=== PATIENT | male | born 1965 | race African-American/Black ===

== ENCOUNTER 2016-10-20 13:58 | Observation (INO) | payer SELFPAY ==
[~2016-10-20] VITALS: Ht 175.3 cm; Wt 80.0 kg
[~2016-10-20 13:58] MED LIST: IBUP800T23 PO
[2016-10-20 14:05] VITALS: BP 165/79; PULSE 73; RESP 16; TEMP 99; O2SAT 98
--- NOTE | 2016-10-20 14:14 | PD ---
HPI Chief Complaint: Chest Pain Time Seen by Provider: 14:04 Travel History International Travel<30 days: No Contact w/Intl Traveler<30days: No Traveled to known affect area: No History of Present Illness HPI The patient is a 50-year-old Shara male who presents emergency department for chest pain. The patient states he used crack cocaine last night and was drinking alcohol, walking, when he developed chest pain. The chest pain was substernal to left-sided, sharp to dull and achy, constant, worse with walking, not alleviated at rest. The patient does complain of mild shortness of breath and nausea without any vomiting, abdominal pain, or diaphoresis. The patient denies any known history of hypertension, hyperlipidemia, diabetes, or previous CAD. The patient does note he has had a previous stress test, however , cannot recall the last time he had a stress test. The patient states he was told that he has a valve that "opens and closes quickly ". The patient does admit to using tobacco. An does note a family history of heart disease on his father's side, however, was not early, before the age of 55. Symptoms are moderate, possibly exacerbated after using crack cocaine and alcohol, and there are no current alleviating factors. The patient received aspirin and sublingual nitroglycerin prior to arrival without any alleviation of his symptoms. [facility] Past Medical History Narrative Medical Illicit drug use, a valve that "opens and closes too quickly " Past Surgical History Narrative Surgical Noncontributory Cholecystectomy: Yes Social History Alcohol Use: Yes (one beer daily) Tobacco Use: Yes (one pack every other day) Substance Use: Yes (crack cocaine) Allergies-Medications (Allergen,Severity, Reaction): Coded Allergies: No Known Allergies (Unverified , 10/20/16) Reported Meds & Prescriptions Reported Meds & Active Scripts Active No Active Prescriptions or Reported Medications Review of Systems Except as stated in HPI: all other systems reviewed are Neg General / Constitutional: No: Fever Cardiovascular: Positive: Chest Pain or Discomfort, No: Diaphoresis Respiratory: Positive: Shortness of Breath Gastrointestinal: Positive: Nausea, No: Vomiting Musculoskeletal: No: Weakness, Edema Neurologic: No: Dizziness Psychiatric: Positive: Substance Abuse Physical Exam Narrative GENERAL: Awake, alert, very pleasant 50-year-old Shara male who appears his stated age and is in no acute respiratory distress. SKIN: Focused skin assessment warm/dry. HEAD: Atraumatic. Normocephalic. EYES: Pupils equal and round. Mild injection bilaterally. ENT: No nasal bleeding or discharge. Breath smells slightly of alcohol. NECK: Trachea midline. No JVD. CARDIOVASCULAR: Regular rate and rhythm. No murmur appreciated. Palpation of the left chest wall does not reproduce symptoms. RESPIRATORY: No accessory muscle use. Clear to auscultation. Breath sounds equal bilaterally. GASTROINTESTINAL: Abdomen soft, minimal epigastric tenderness. MUSCULOSKELETAL: No obvious deformities. No clubbing. No cyanosis. No edema. NEUROLOGICAL: Awake and alert. No obvious cranial nerve deficits. Motor grossly within normal limits. Normal speech. PSYCHIATRIC: Appropriate mood and affect; insight and judgment normal. Data Data Last Documented VS Vital Signs Date Time Temp Pulse Resp B/P Pulse Ox O2 Delivery O2 Flow Rate FiO2 10/20/16 14:48 75 14 129/71 98 10/20/16 14:05 99.0 10/20/16 14:05 Nasal Cannula 2 Orders Electrocardiogram (10/20/16 14:04) Ckmb (Isoenzyme) Profile (10/20/16 14:04) Complete Blood Count With Diff (10/20/16 14:04) Comprehensive Metabolic Panel (10/20/16 14:04) Magnesium (Mg) (10/20/16 14:04) Prothrombin Time / Inr (Pt) (10/20/16 14:04) Act Partial Throm Time (Ptt) (10/20/16 14:04) Troponin I (10/20/16 14:04) Lipase (10/20/16 14:04) Chest, Single Ap (10/20/16 14:04) Ecg Monitoring (10/20/16 14:04) Bilateral Bp Monitoring (10/20/16 14:04) Iv Access Insert/Monitor (10/20/16 14:04) Oximetry (10/20/16 14:04) Oxygen Administration (10/20/16 14:04) Morphine Inj (Morphine Inj) (10/20/16 14:15) Sodium Chloride 0.9% Flush (Ns Flush) (10/20/16 14:15) Sodium Chlorid 0.9% 500 Ml Inj (Ns 500 M (10/20/16 14:15) Alcohol (Ethanol) (10/20/16 14:04) Drug Screen, Random Urine (10/20/16 14:04) Ondansetron Inj (Zofran Inj) (10/20/16 14:15) CKMB (10/20/16 14:45) CKMB% (10/20/16 14:45) Labs Laboratory Tests Test 10/20/16 10/20/16 14:15 14:45 Urine Opiates Screen NEG Urine Barbiturates Screen NEG Urine Amphetamines Screen NEG Urine Benzodiazepines Screen NEG Urine Cocaine Screen POS Urine Cannabinoids Screen NEG White Blood Count 5.2 TH/MM3 Red Blood Count 3.95 MIL/MM3 Hemoglobin 12.3 GM/DL Hematocrit 36.5 % Mean Corpuscular Volume 92.5 FL Mean Corpuscular Hemoglobin 31.2 PG Mean Corpuscular Hemoglobin 33.7 % Concent Red Cell Distribution Width 12.8 % Platelet Count 231 TH/MM3 Mean Platelet Volume 8.0 FL Neutrophils (%) (Auto) 58.1 % Lymphocytes (%) (Auto) 31.0 % Monocytes (%) (Auto) 8.7 % Eosinophils (%) (Auto) 1.5 % Basophils (%) (Auto) 0.7 % Neutrophils # (Auto) 3.0 TH/MM3 Lymphocytes # (Auto) 1.6 TH/MM3 Monocytes # (Auto) 0.5 TH/MM3 Eosinophils # (Auto) 0.1 TH/MM3 Basophils # (Auto) 0.0 TH/MM3 CBC Comment DIFF FINAL Differential Comment Prothrombin Time 10.4 SEC Prothromb Time International 0.9 RATIO Ratio Activated Partial 27.3 SEC Thromboplast Time Sodium Level 141 MEQ/L Potassium Level 3.8 MEQ/L Chloride Level 107 MEQ/L Carbon Dioxide Level 27.0 MEQ/L Anion Gap 7 MEQ/L Blood Urea Nitrogen 15 MG/DL Creatinine 0.93 MG/DL Estimat Glomerular Filtration 103 ML/MIN Rate Random Glucose 74 MG/DL Calcium Level 8.6 MG/DL Magnesium Level 2.3 MG/DL Total Bilirubin 0.7 MG/DL Aspartate Amino Transf 37 U/L (AST/SGOT) Alanine Aminotransferase 41 U/L (ALT/SGPT) Alkaline Phosphatase 68 U/L Total Creatine Kinase 717 U/L Creatine Kinase MB 2.9 NG/ML Creatine Kinase MB % 0.4 % Troponin I LESS THAN 0.02 NG/ML Total Protein 7.1 GM/DL Albumin 3.8 GM/DL Lipase 94 U/L Ethyl Alcohol Level LESS THAN 3 MG/DL MDM Medical Decision Making Medical Screen Exam Complete: Yes Emergency Medical Condition: Yes Medical Record Reviewed: Yes Interpretation(s) EKG reveals normal sinus rhythm with a rate of 67. Nonspecific T-wave changes. Left ventricular hypertrophy. Last Impressions Chest X-Ray 10/20/16 1404 Signed Impressions: Service Date/Time: September 14:12 - CONCLUSION: 1. No acute focal pulmonary infiltrate. 2. Degenerative changes throughout the thoracic spine. Navneet Martin MD Laboratory Tests Test 10/20/16 10/20/16 14:15 14:45 Urine Opiates Screen NEG Urine Barbiturates Screen NEG Urine Amphetamines Screen NEG Urine Benzodiazepines Screen NEG Urine Cocaine Screen POS Urine Cannabinoids Screen NEG White Blood Count 5.2 TH/MM3 Red Blood Count 3.95 MIL/MM3 Hemoglobin 12.3 GM/DL Hematocrit 36.5 % Mean Corpuscular Volume 92.5 FL Mean Corpuscular Hemoglobin 31.2 PG Mean Corpuscular Hemoglobin 33.7 % Concent Red Cell Distribution Width 12.8 % Platelet Count 231 TH/MM3 Mean Platelet Volume 8.0 FL Neutrophils (%) (Auto) 58.1 % Lymphocytes (%) (Auto) 31.0 % Monocytes (%) (Auto) 8.7 % Eosinophils (%) (Auto) 1.5 % Basophils (%) (Auto) 0.7 % Neutrophils # (Auto) 3.0 TH/MM3 Lymphocytes # (Auto) 1.6 TH/MM3 Monocytes # (Auto) 0.5 TH/MM3 Eosinophils # (Auto) 0.1 TH/MM3 Basophils # (Auto) 0.0 TH/MM3 CBC Comment DIFF FINAL Differential Comment Prothrombin Time 10.4 SEC Prothromb Time International 0.9 RATIO Ratio Activated Partial 27.3 SEC Thromboplast Time Sodium Level 141 MEQ/L Potassium Level 3.8 MEQ/L Chloride Level 107 MEQ/L Carbon Dioxide Level 27.0 MEQ/L Anion Gap 7 MEQ/L Blood Urea Nitrogen 15 MG/DL Creatinine 0.93 MG/DL Estimat Glomerular Filtration 103 ML/MIN Rate Random Glucose 74 MG/DL Calcium Level 8.6 MG/DL Magnesium Level 2.3 MG/DL Total Bilirubin 0.7 MG/DL Aspartate Amino Transf 37 U/L (AST/SGOT) Alanine Aminotransferase 41 U/L (ALT/SGPT) Alkaline Phosphatase 68 U/L Total Creatine Kinase 717 U/L Creatine Kinase MB 2.9 NG/ML Creatine Kinase MB % 0.4 % Troponin I LESS THAN 0.02 NG/ML Total Protein 7.1 GM/DL Albumin 3.8 GM/DL Lipase 94 U/L Ethyl Alcohol Level LESS THAN 3 MG/DL Differential Diagnosis Differential diagnosis includes acute coronary syndrome, cocaine toxicity, rhabdomyolysis, pancreatitis, GERD, esophageal spasm, peptic ulcer disease. Narrative Course IV was established, labs are drawn and sent, and the patient was placed on cardiac telemetry monitoring and continuous pulse oximetry monitoring. EKG was ordered and interpreted. The patient received aspirin and nitroglycerin prior to arrival. The patient received morphine, Zofran, and IV fluids. Chest x-ray was obtained. Chest x-rays unremarkable. Tox screen is positive for cocaine. Alcohol is unremarkable. The CPK is mildly elevated at 700, troponin is negative. Patient may have cocaine-induced ischemic cardiomyopathy versus rhabdomyolysis from cocaine. Therefore, patient will be 23 hour observation. Physician Communication Physician Communication The patient will be 23 hour observation to the chest pain center for serial cardiac enzymes and further evaluation by cardiology. Diagnosis Primary Impression: Chest pain Qualified Code: R07.9 - Chest pain, unspecified type Admitting Information Admitting Physician Requests: Observation Scripts No Active Prescriptions or Reported Meds Condition: Stable Wojciech Luke MD Oct 20, 2016 14:14
[2016-10-20] MEDS ORDERED: MORPHINE SULFATE 4 MG/ML INJ IV PUSH ONE (14:15)
[2016-10-20] MEDS ORDERED: ONDANSETRON HCL 4 MG/2 ML VIAL IV PUSH ONE (14:15)
[2016-10-20] MEDS ORDERED: SODIUM CHLORIDE 0.9% FLUSH 10 ML FLUSH IVF PRN (14:15)
[2016-10-20] MEDS ORDERED: SODIUM CHLORID 0.9% 500 ML INJ 500 ML IV ONE (14:15)
--- NOTE | 2016-10-20 14:22 | EKG ---
Date Performed: 10/20/2016 Time Performed: 14:06:07 PTAGE: 50 years EKG: Sinus rhythm LEFT ATRIAL ENLARGEMENT POSSIBLE LEFT VENTRICULAR HYPERTROPHY Mild nonspecific anteroseptal ST eleva tion. NONSPECIFIC T-WAVE ABNORMALITY Clinical correlation suggested. ABNORMAL ECG NO PREVIOUS TRACING DOCTOR: Vinod Lizarraga Interpretating Date/Time 10/20/2016 14:20:13
[2016-10-20 14:48] VITALS: BP 129/71; PULSE 75; RESP 14; O2SAT 98
[2016-10-20 15:22] LABS: BASOPHIL % 0.7 % (0.0-2.0); EOSINOPHIL # 0.1 TH/MM3 (0-0.4); EOSINOPHIL % 1.5 % (0.0-4.0); HEMATOCRIT 36.5 % (39.0-51.0); HEMO FLAGS DIFF FINAL; LYMPHOCYTE # 1.6 TH/MM3 (1.0-4.8); MEAN CELL VOLUME 92.5 FL (80.0-100.0); MEAN CORPUSCULAR HEMOGLOBIN 31.2 PG (27.0-34.0); MEAN CORPUSCULAR HGB CONC 33.7 % (32.0-36.0); MONO % 8.7 % (0.0-8.0); NEUT % 58.1 % (16.0-70.0); PLATELET COUNT 231 TH/MM3 (150-450); RED BLOOD COUNT 3.95 MIL/MM3 (4.50-5.90); RED CELL DISTRIBUTION WIDTH 12.8 % (11.6-17.2); WHITE BLOOD COUNT 5.2 TH/MM3 (4.0-11.0)
[2016-10-20 15:23] LABS: AMPHETAMINE, URINE NEG (NEG); BARBITURATES, URINE NEG (NEG); COCAINE, URINE POS (NEG)
[2016-10-20 15:27] LABS: APTT (PATIENT) 27.3 SEC (24.3-30.1); INTERNATIONAL NORMALIZED RATIO 0.9 RATIO; PROTHROMBIN TIME - PATIENT 10.4 SEC (9.8-11.6)
[2016-10-20 15:40] LABS: ALT (GPT) 41 U/L (12-78); ANION GAP 7 MEQ/L (5-15); AST (GOT) 37 U/L (15-37); BLOOD UREA NITROGEN 15 MG/DL (7-18); CHLORIDE 107 MEQ/L (98-107); GLOMERULAR FILTRATION RATE 103 ML/MIN (>89); MAGNESIUM 2.3 MG/DL (1.5-2.5); POTASSIUM 3.8 MEQ/L (3.5-5.1); SODIUM (NA) 141 MEQ/L (136-145)
[2016-10-20 15:42] LABS: ALKALINE PHOSPHATASE 68 U/L (45-117); CREATINE KINASE 717 U/L (39-308); TOTAL BILIRUBIN ADULT 0.7 MG/DL (0.2-1.0)
--- NOTE | 2016-10-20 15:48 | RADRPT ---
EXAM DATE/TIME: 10/20/2016 14:12 [facility] COMPARISON: CHEST SINGLE AP, March 02, 2015, 19:42. INDICATIONS : Chest pain today. MEDICAL HISTORY : None. SURGICAL HISTORY : None. ENCOUNTER: Initial ACUITY: 1 day PAIN SCORE: 6/10 LOCATION: Bilateral chest FINDINGS: The heart is top normal in size. The pulmonary vascular pattern is normal. The lungs are clear. De generative changes are noted throughout the thoracic spine. CONCLUSION: 1. No acute focal pulmonary infiltrate. 2. Degenerative changes throughout the thoracic spine. Navneet Martin MD on October 20, 2016 at 15:06 Board Certified Radiologist. This report was verified electronically.
[2016-10-20 16:14] LABS: CKMB 2.9 NG/ML (0.5-3.6)
[2016-10-20] MEDS ORDERED: ACETAMINOPHEN 500 MG CPLT PO PRN (17:00)
[2016-10-20] MEDS ORDERED: ONDANSETRON HCL 4 MG/2 ML VIAL IV PRN (17:00)
[2016-10-20] MEDS ORDERED: NITROGLYCERIN 0.4 MG SL 25 TABS/BTL SL PRN (17:00)
[2016-10-20 17:46] VITALS: BP 177/92; PULSE 73; RESP 16; TEMP 97.6; O2SAT 98
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
[2016-10-20] MEDS ORDERED: amLODIPine BESYLATE 5 MG TAB PO ONE (18:30)
[2016-10-20 18:56] LABS: CREATINE KINASE 727 U/L (39-308)
[2016-10-20 19:17] LABS: CKMB 2.6 NG/ML (0.5-3.6)
[2016-10-20 19:36] VITALS: BP 168/87; PULSE 76; RESP 18; TEMP 98.9; O2SAT 100
[2016-10-20 20:01] VITALS: PULSE 78
[2016-10-20] MEDS: SODIUM CHLORIDE 0.9% FLUSH 10 ML FLUSH IV FLUSH SCH (20:59)
[2016-10-20 22:42] LABS: CREATINE KINASE 480 U/L (39-308)
[2016-10-20 22:54] LABS: CKMB 1.8 NG/ML (0.5-3.6)
[2016-10-20 23:42] VITALS: BP 137/79; PULSE 76; RESP 18; TEMP 98; O2SAT 99
[2016-10-21] VITALS (7 sets, daily range): BP systolic 136–175; BP diastolic 77–91; PULSE 54–66; RESP 18; TEMP 98.2–98.3; O2SAT 94–99
[2016-10-21] MEDS ORDERED: amLODIPine BESYLATE 5 MG TAB PO SCH (09:00)
[2016-10-21] MEDS ORDERED: ASPIRIN 325 MG TAB PO SCH (09:00)
[2016-10-21] MEDS: SODIUM CHLORIDE 0.9% FLUSH 10 ML FLUSH IV FLUSH SCH (09:07)
--- NOTE | 2016-10-21 09:33 | EKG ---
Date Performed: 10/20/2016 Time Performed: 18:12:37 PTAGE: 50 years EKG: Sinus rhythm POSSIBLE LEFT ATRIAL ENLARGEMENT POSSIBLE LEFT VENTRICULAR HYPERTROPHY NONSPECIFIC T-WAVE ABNORMALIT Y ABNORMAL ECG PREVIOUS TRACING : 10/20/2016 14.06 Since previous tracing, no significant change noted DOCTOR: Jake Alicea Interpretating Date/Time 10/21/2016 09:31:14
[2016-10-21] MEDS ORDERED: REGADENOSON INJ 0.4 MG/5 ML SYR ONE (11:44)
--- NOTE | 2016-10-21 13:12 | RADRPT ---
EXAM DATE/TIME: 10/21/2016 11:23 [facility] COMPARISON: No previous studies available for comparison. INDICATIONS : Angina. DOSE: 26.1 mCi Tc99m Myoview at stress. 8.1 mCi Tc99m Myoview at rest. 0.4 mg Lexiscan STRESS SYMPTOMS: None noted. EJECTION FRACTION: 50% MEDICAL HISTORY : None SURGICAL HISTORY : Cholecystectomy. ENCOUNTER: Initial ACUITY: 1 day PAIN SCALE: 3/10 LOCATION: Left chest pain TECHNIQUE: The patient underwent pharmacologic stress with infusion of prescribed dose. Continuous ECG tracing was monitored during stress. Gated SPECT imaging was performed after stress and conventional SPECT i maging was performed at rest. The examination was performed on a SPECT/CT scanner, both attenuation and non-corrected datasets were reviewed. FINDINGS: The best perfused myocardium at stress is the septum. There is minimal redistribution anterior later al wall with some gut activity obscuring the inferior wall. This is of borderline significance. The ejection fraction is 50% with minimal inferior lateral wall hypokinesis. CONCLUSION: Borderline redistribution partially obscured by gut activity with mildly depressed ejection fraction. Correlation is suggested. RISK CATEGORY: Low (<1% Annual Mortality Rate) Booker Krause MD FACR on October 21, 2016 at 13:08 Board Certified Radiologist. This report was verified electronically.
--- NOTE | 2016-10-21 13:33 | HHI.DCPOC ---
Discharge Care Plan Diagnosis: (1) Chest pain (2) Tobacco abuse (3) Cocaine abuse Goals to Promote Your Health * To prevent worsening of your condition and complications * To maintain your health at the optimal level Directions to Meet Your Goals Take your medications as prescribed Follow your dietary instruction Follow activity as directed Keep your appointments as scheduled Take your immunizations and boosters as scheduled If your symptoms worsen call your PCP, if no PCP go to Urgent Care Center or Emergency Room Smoking is Dangerous to Your Health. Avoid second hand smoke Call the 24-hour hour crisis hotline for domestic abuse at Yeyo Mccray Oct 21, 2016 13:33
--- NOTE | 2016-10-21 15:26 | TR ---
Date Performed: 10/21/2016 Time Performed: 11:59:55 DOCTOR: Jake Alicea DRUG LIST: CLINICAL HISTORY: ANGINA REASON FOR TEST: Angina REASON FOR ENDING: OBSERVATION: CONCLUSION: Lexiscan stress test was performed under standard four minute protocol. Radionuclid e was injected one minute prior to ending the test. No electrocardiographic abormalities were present to suggest ischemia. Nuclear imaging and interpretation are pending. COMMENTS:
--- NOTE | 2016-10-21 15:31 | TR ---
Date Performed: 10/21/2016 Time Performed: 08:43:56 DOCTOR: Jake Alicea DRUG LIST: CLINICAL HISTORY: REASON FOR TEST: REASON FOR ENDING: OBSERVATION: CONCLUSION: CHEST TIGHTNESS IN SECOND STAGE. TEST STOPPED PRIOR TO REACHING GOAL HR SECONDARY TO CP, SOB, AND LEG FATIGUE. Maximum EL=840 % Max HR Achieved=64.0% Maximum DX=384/80 Total Exercise Ti me=4:13 COMMENTS: Non diagnostic test due to inability to achieve target HR
[2016-10-22] MEDS ORDERED: NAPR500T PO (02:00)
== END 2016-10-21 15:32 | disposition home or self-care (01) ==
LOC: NEPE 13:58 → NEDA 16:25 → NEPHCDU 17:45
PROVIDERS: ADMIT Internal Medicine Cardiovascular Disease; ATTEND Internal Medicine Cardiovascular Disease
DX: R07.89 Other chest pain (principal); R11.0 Nausea; R61 Generalized hyperhidrosis; R51 Headache; R91.8 Other nonspecific abnormal finding of lung field; I20.9 Angina pectoris, unspecified; R06.02 Shortness of breath; R10.816 Epigastric abdominal tenderness; R94.31 Abnormal electrocardiogram [ECG] [EKG]; I11.9 Hypertensive heart disease without heart failure; I51.7 Cardiomegaly; F14.10 Cocaine abuse, uncomplicated; F17.200 Nicotine dependence, unspecified, uncomplicated
CPT/HCPCS: 71010; 78452; 80053; 80307; 82550; 82552; 83690; 83735; 84484; 85025; 85610; 85730; 93005; 93017; 96374; 96375; 99285; A9502; G0378; J2270; J2405; J2785; J7040

== ENCOUNTER 2016-10-21 22:50 | Emergency (ER) | payer SELFPAY ==
[~2016-10-21] VITALS: Ht 177.8 cm; Wt 89.0 kg
[2016-10-21 22:52] VITALS: BP 141/79; PULSE 62; TEMP 98.4; O2SAT 98
[2016-10-21 23:47] VITALS: BP 163/90; PULSE 60; RESP 18; O2SAT 99
[2016-10-22] MEDS ORDERED: SODIUM CHLORIDE 0.9% FLUSH 10 ML FLUSH IVF PRN
[2016-10-22] MEDS ORDERED: KETOROLAC TROMETHAMINE 30 MG/ML (IVP) VIAL IV PUSH ONE
--- NOTE | 2016-10-22 00:15 | PD ---
HPI Chief Complaint: Chest Pain Time Seen by Provider: 23:49 Travel History International Travel<30 days: No Contact w/Intl Traveler<30days: No Traveled to known affect area: No History of Present Illness HPI Patient is a 50-year-old male who returns to emergency room for evaluation of chest pain. Patient reports that he was just discharged from the chest pain unit today after he had a negative stress test, he reports that he is still having chest pain. Patient reports that he has had substernal chest pain all day, reports that he had this pain when he was discharged from the chest pain unit. Patient denies use of drugs at this time at he did use cocaine prior to his chest pain admission. Patient reports no medical problems at this time, no family history of early coronary artery disease. PFSH Past Medical History Depression: Yes Cardiovascular Problems: No Diminished Hearing: No Tetanus Vaccination: Unknown Influenza Vaccination: No Past Surgical History Cholecystectomy: Yes Social History Alcohol Use: Yes (OCCASSIONALLY) Tobacco Use: Yes (04/25) Substance Use: Yes (COCAINE 10/19/16) Allergies-Medications (Allergen,Severity, Reaction): Coded Allergies: No Known Allergies (Unverified , 10/21/16) Reported Meds & Prescriptions Reported Meds & Active Scripts Active No Active Prescriptions or Reported Medications Review of Systems General / Constitutional: No: Fever Eyes: No: Visual changes HENT: No: Headaches Cardiovascular: Positive: Chest Pain or Discomfort Respiratory: No: Shortness of Breath Gastrointestinal: No: Abdominal Pain Genitourinary: No: Dysuria Musculoskeletal: No: Pain Skin: No Rash Neurologic: No: Weakness Psychiatric: No: Depression Endocrine: No: Polydipsia Hematologic/Lymphatic: No: Easy Bruising Physical Exam Narrative GENERAL: No acute distress, nontoxic SKIN: Focused skin assessment warm/dry. HEAD: Atraumatic. Normocephalic. EYES: Pupils equal and round. No scleral icterus. No injection or drainage. ENT: No nasal bleeding or discharge. Mucous membranes pink and moist. NECK: Trachea midline. No JVD. CARDIOVASCULAR: Regular rate and rhythm. No murmur appreciated. RESPIRATORY: No accessory muscle use. Clear to auscultation. Breath sounds equal bilaterally. GASTROINTESTINAL: Abdomen soft, non-tender, nondistended. Hepatic and splenic margins not palpable. MUSCULOSKELETAL: No obvious deformities. No clubbing. No cyanosis. No edema. NEUROLOGICAL: Awake and alert. No obvious cranial nerve deficits. Motor grossly within normal limits. Normal speech. PSYCHIATRIC: Appropriate mood and affect; insight and judgment normal. Data Data Last Documented VS Vital Signs Date Time Temp Pulse Resp B/P Pulse Ox O2 Delivery O2 Flow Rate FiO2 10/22/16 01:26 55 18 154/70 98 Room Air 10/21/16 22:52 98.4 Orders Electrocardiogram (10/21/16 ) Ckmb (Isoenzyme) Profile (10/21/16 23:49) Complete Blood Count With Diff (10/21/16 23:49) Comprehensive Metabolic Panel (10/21/16 23:49) Prothrombin Time / Inr (Pt) (10/21/16 23:49) Act Partial Throm Time (Ptt) (10/21/16 23:49) Troponin I (10/21/16 23:49) Chest, Single Ap (10/21/16 23:49) Ecg Monitoring (10/21/16 23:49) Iv Access Insert/Monitor (10/21/16 23:49) Oximetry (10/21/16 23:49) Sodium Chloride 0.9% Flush (Ns Flush) (10/22/16 00:00) Drug Screen, Random Urine (10/21/16 23:49) Ketorolac Inj (Toradol Inj) (10/22/16 00:00) CKMB (10/22/16 00:10) CKMB% (10/22/16 00:10) Labs Laboratory Tests Test 10/22/16 00:10 White Blood Count 6.7 TH/MM3 Red Blood Count 4.33 MIL/MM3 Hemoglobin 13.2 GM/DL Hematocrit 40.8 % Mean Corpuscular Volume 94.1 FL Mean Corpuscular Hemoglobin 30.5 PG Mean Corpuscular Hemoglobin 32.4 % Concent Red Cell Distribution Width 13.0 % Platelet Count 233 TH/MM3 Mean Platelet Volume 8.3 FL Neutrophils (%) (Auto) 57.3 % Lymphocytes (%) (Auto) 33.6 % Monocytes (%) (Auto) 7.2 % Eosinophils (%) (Auto) 1.2 % Basophils (%) (Auto) 0.7 % Neutrophils # (Auto) 3.8 TH/MM3 Lymphocytes # (Auto) 2.3 TH/MM3 Monocytes # (Auto) 0.5 TH/MM3 Eosinophils # (Auto) 0.1 TH/MM3 Basophils # (Auto) 0.0 TH/MM3 CBC Comment DIFF FINAL Differential Comment Prothrombin Time 10.6 SEC Prothromb Time International 1.0 RATIO Ratio Activated Partial 27.5 SEC Thromboplast Time Sodium Level 142 MEQ/L Potassium Level 3.7 MEQ/L Chloride Level 107 MEQ/L Carbon Dioxide Level 30.2 MEQ/L Anion Gap 5 MEQ/L Blood Urea Nitrogen 13 MG/DL Creatinine 1.22 MG/DL Estimat Glomerular Filtration 76 ML/MIN Rate Random Glucose 86 MG/DL Calcium Level 8.9 MG/DL Total Bilirubin 0.9 MG/DL Aspartate Amino Transf 30 U/L (AST/SGOT) Alanine Aminotransferase 39 U/L (ALT/SGPT) Alkaline Phosphatase 68 U/L Total Creatine Kinase 363 U/L Creatine Kinase MB 1.5 NG/ML Creatine Kinase MB % 0.4 % Troponin I LESS THAN 0.02 NG/ML Total Protein 7.5 GM/DL Albumin 4.0 GM/DL Urine Opiates Screen NEG Urine Barbiturates Screen NEG Urine Amphetamines Screen NEG Urine Benzodiazepines Screen NEG Urine Cocaine Screen POS Urine Cannabinoids Screen NEG MDM Medical Decision Making Medical Screen Exam Complete: Yes Emergency Medical Condition: Yes Interpretation(s) EKG at 2306: Sinus baldev at 54bpm, qt/qtc: 405/391, no change when compared to ekg from 10/10/16 Vital Signs Date Time Temp Pulse Resp B/P Pulse Ox O2 Delivery O2 Flow Rate FiO2 10/22/16 00:28 18 100 Room Air 10/21/16 23:47 60 18 163/90 99 Room Air 10/21/16 23:42 60 18 99 Room Air 10/21/16 22:52 98.4 62 141/79 98 Differential Diagnosis ACS, arrhythmia, electrolyte abnormality, drug abuse, costochondritis Narrative Course Patient is a 50-year-old male who was discharged from the chest pain unit today , return to the emergency with complaints of chest pain. Patient reports that his chest pain never resolved and he was discharged with chest pain. Patient reports that his chest pain feels similar to his previous episodes, reports no new symptoms at this time. Patient denies any shortness of breath, diaphoresis , nausea or vomiting with the symptoms. Patient denies any cocaine abuse with this chest pain today. During patient's evaluation at the chest pain unit, patient did have a stress test performed. There were no electrocardiographic abnormalities presents to suggest ischemia. Patient was discharged from the hospital with instructions to follow-up with his physician as outpatient. Patient returned today with similar symptoms, reports that his chest pain never resolved. Patient was placed on a front desk monitor upon arrival to the emergency room. EKG obtained, EKG similar to EKG pain from 10/20/2016. Plan to obtain labs, xray of chest, will monitor on front desk monitor. Will administer IV toradol for pain Laboratory Tests Test 10/22/16 00:10 White Blood Count 6.7 TH/MM3 (4.0-11.0) Red Blood Count 4.33 MIL/MM3 (4.50-5.90) Hemoglobin 13.2 GM/DL (13.0-17.0) Hematocrit 40.8 % (39.0-51.0) Mean Corpuscular Volume 94.1 FL (80.0-100.0) Mean Corpuscular Hemoglobin 30.5 PG (27.0-34.0) Mean Corpuscular Hemoglobin 32.4 % Concent (32.0-36.0) Red Cell Distribution Width 13.0 % (11.6-17.2) Platelet Count 233 TH/MM3 (150-450) Mean Platelet Volume 8.3 FL (7.0-11.0) Neutrophils (%) (Auto) 57.3 % (16.0-70.0) Lymphocytes (%) (Auto) 33.6 % (9.0-44.0) Monocytes (%) (Auto) 7.2 % (0.0-8.0) Eosinophils (%) (Auto) 1.2 % (0.0-4.0) Basophils (%) (Auto) 0.7 % (0.0-2.0) Neutrophils # (Auto) 3.8 TH/MM3 (1.8-7.7) Lymphocytes # (Auto) 2.3 TH/MM3 (1.0-4.8) Monocytes # (Auto) 0.5 TH/MM3 (0-0.9) Eosinophils # (Auto) 0.1 TH/MM3 (0-0.4) Basophils # (Auto) 0.0 TH/MM3 (0-0.2) CBC Comment DIFF FINAL Differential Comment Prothrombin Time 10.6 SEC (9.8-11.6) Prothromb Time International 1.0 RATIO Ratio Activated Partial 27.5 SEC Thromboplast Time (24.3-30.1) Sodium Level 142 MEQ/L (136-145) Potassium Level 3.7 MEQ/L (3.5-5.1) Chloride Level 107 MEQ/L (98-107) Carbon Dioxide Level 30.2 MEQ/L (21.0-32.0) Anion Gap 5 MEQ/L (5-15) Blood Urea Nitrogen 13 MG/DL (7-18) Creatinine 1.22 MG/DL (0.60-1.30) Estimat Glomerular Filtration 76 ML/MIN (>89) Rate Random Glucose 86 MG/DL (74-106) Calcium Level 8.9 MG/DL (8.5-10.1) Total Bilirubin 0.9 MG/DL (0.2-1.0) Aspartate Amino Transf 30 U/L (15-37) (AST/SGOT) Alanine Aminotransferase 39 U/L (12-78) (ALT/SGPT) Alkaline Phosphatase 68 U/L (45-117) Total Creatine Kinase 363 U/L (39-308) Creatine Kinase MB 1.5 NG/ML (0.5-3.6) Creatine Kinase MB % 0.4 % (0.0-4.0) Troponin I LESS THAN 0.02 NG/ML (0.02-0.05) Total Protein 7.5 GM/DL (6.4-8.2) Albumin 4.0 GM/DL (3.4-5.0) Urine Opiates Screen NEG (NEG) Urine Barbiturates Screen NEG (NEG) Urine Amphetamines Screen NEG (NEG) Urine Benzodiazepines Screen NEG (NEG) Urine Cocaine Screen POS (NEG) Urine Cannabinoids Screen NEG (NEG) Last Impressions Chest X-Ray 10/21/16 0538 Signed Impressions: Service Date/Time: Friday, October 21, 2016 23:48 - CONCLUSION: Normal examination. Rich Tobias MD Patient feeling much better at this time after Toradol was given. Patient will follow-up with cardiology as outpatient. Patient most likely with costochondritis, encouraged him to stop using cocaine, patient agrees. Patient will follow-up with cardiology and his primary care doctor and will return to the emergency room as needed. Diagnosis Primary Impression: Chest pain Qualified Code: R07.9 - Chest pain, unspecified type Additional Impression: Drug abuse Referrals: Selvin Kam MD Patient Instructions: General Instructions Additional Instructions: Please stop using drugs Please follow-up with shipping hand, please call for earliest appointment Please follow-up with your primary care doctor Drink plenty of fluids Return to emergency room if symptoms worsen or progress Return to emergency room as needed Med/Other Pt SpecificInfo: Prescription(s) given Scripts Naproxen 500 Mg [id number] Mg PO BID #60 TAB Ref 0 Prov:Kandi Lizarraga DO 10/22/16 Disposition: 01 DISCHARGE HOME Condition: Stable Kandi Lizarraga DO Oct 22, 2016 00:15
[2016-10-22 00:28] VITALS: RESP 18; O2SAT 100
--- NOTE | 2016-10-22 00:29 | RADRPT ---
EXAM DATE/TIME: 10/21/2016 23:48 [facility] COMPARISON: CHEST SINGLE AP, October 20, 2016, 14:12. INDICATIONS : Patient having chest pain x 2 days. Seen here earlier today for same reason. MEDICAL HISTORY : None. SURGICAL HISTORY : Cholecystectomy. ENCOUNTER: Initial ACUITY: 2 days PAIN SCORE: 7/10 LOCATION: Bilateral chest FINDINGS: A single view of the chest demonstrates the lungs to be symmetrically aerated without evidence of mas s, infiltrate or effusion. The cardiomediastinal contours are unremarkable. Osseous structures are intact. CONCLUSION: Normal examination. Rich Tobias MD on October 22, 2016 at 0:27 Board Certified Radiologist. This report was verified electronically.
[2016-10-22 00:39] LABS: AUTOMATED NEUTROPHIL # 3.8 TH/MM3 (1.8-7.7); BASOPHIL % 0.7 % (0.0-2.0); EOSINOPHIL # 0.1 TH/MM3 (0-0.4); EOSINOPHIL % 1.2 % (0.0-4.0); HEMATOCRIT 40.8 % (39.0-51.0); HEMO FLAGS DIFF FINAL; LYMPH % 33.6 % (9.0-44.0); LYMPHOCYTE # 2.3 TH/MM3 (1.0-4.8); MEAN CELL VOLUME 94.1 FL (80.0-100.0); MEAN CORPUSCULAR HEMOGLOBIN 30.5 PG (27.0-34.0); MEAN CORPUSCULAR HGB CONC 32.4 % (32.0-36.0); MONO % 7.2 % (0.0-8.0); NEUT % 57.3 % (16.0-70.0); PLATELET COUNT 233 TH/MM3 (150-450); RED BLOOD COUNT 4.33 MIL/MM3 (4.50-5.90); WHITE BLOOD COUNT 6.7 TH/MM3 (4.0-11.0)
[2016-10-22 00:48] LABS: AMPHETAMINE, URINE NEG (NEG); BARBITURATES, URINE NEG (NEG); COCAINE, URINE POS (NEG)
[2016-10-22 00:55] LABS: APTT (PATIENT) 27.5 SEC (24.3-30.1); PROTHROMBIN TIME - PATIENT 10.6 SEC (9.8-11.6)
[2016-10-22 00:58] LABS: ALT (GPT) 39 U/L (12-78); ANION GAP 5 MEQ/L (5-15); AST (GOT) 30 U/L (15-37); BICARBONATE 30.2 MEQ/L (21.0-32.0); BLOOD UREA NITROGEN 13 MG/DL (7-18); CHLORIDE 107 MEQ/L (98-107); GLOMERULAR FILTRATION RATE 76 ML/MIN (>89); POTASSIUM 3.7 MEQ/L (3.5-5.1); SODIUM (NA) 142 MEQ/L (136-145)
[2016-10-22 01:01] LABS: ALKALINE PHOSPHATASE 68 U/L (45-117); CREATINE KINASE 363 U/L (39-308); TOTAL BILIRUBIN ADULT 0.9 MG/DL (0.2-1.0)
[2016-10-22 01:14] LABS: CKMB 1.5 NG/ML (0.5-3.6)
[2016-10-22 01:26] VITALS: BP 154/70; PULSE 55; RESP 18; O2SAT 98
[2016-10-22] MEDS ORDERED: NAPR500T PO (02:00)
--- NOTE | 2016-10-22 10:06 | EKG ---
Date Performed: 10/21/2016 Time Performed: 23:06:06 PTAGE: 50 years EKG: SINUS BRADYCARDIA POSSIBLE RIGHT ATRIAL ENLARGEMENT LEFT ATRIAL ENLARGEMENT POSSIBLE LEFT V ENTRICULAR HYPERTROPHY NONSPECIFIC T-WAVE ABNORMALITY ABNORMAL ECG No significant change from prior e lectrocardiogram. PREVIOUS TRACING : 10/20/2016 18.12 DOCTOR: Vinod Lizarraga Interpretating Date/Time 10/22/2016 10:04:19
== END 2016-10-22 02:20 | disposition home or self-care (01) ==
LOC: NEPE 22:50
DX: R07.89 Other chest pain (principal); F14.10 Cocaine abuse, uncomplicated; F32.9 Major depressive disorder, single episode, unspecified; F17.200 Nicotine dependence, unspecified, uncomplicated
CPT/HCPCS: 71010; 80053; 80307; 82550; 82552; 84484; 85025; 85610; 85730; 93005; 96374; 99285; J1885

== ENCOUNTER 2017-05-28 02:17 | Inpatient (IN) | payer SELFPAY ==
[~2017-05-28] VITALS: Ht 177.8 cm; Wt 86.1 kg
[2017-05-28] VITALS (9 sets, daily range): BP systolic 121–148; BP diastolic 70–96; PULSE 64–83; RESP 16–20; TEMP 98–98.9; O2SAT 94–99
[~2017-05-28 02:17] MED LIST changes: -IBUP800T23 PO; +NAPR500T2 PO
--- NOTE | 2017-05-28 02:44 | PD ---
HPI Chief Complaint: Syncope/Near-Syncope Time Seen by Provider: 02:38 Travel History International Travel<30 days: No Contact w/Intl Traveler<30days: No Traveled to known affect area: No History of Present Illness HPI 51-year-old male presents to the emergency department by EMS transport after syncopal episode while walking along [address]. Patient reports that just prior to arrival to the emergency department [facility] and did not have any kind of dizziness lightheadedness chest pain shortness of breath or new onset numbness tingling or weakness and found himself on the ground. Patient states he awakened on the ground and is not sure how long he had loss of consciousness but thinks maybe 10 or 15 minutes. Patient denies any bladder or bowel dysfunction or incontinence and denies any tongue trauma. Patient denies any prior history of seizure disorder. Patient admits to alcohol consumption this evening and cocaine use. Patient states he has had 3 prior episodes of syncope once in [place] and 2 times here in [place]. Patient states the 2 episodes in [place] were associated with cocaine use. Patient denies any recent long distance travel or protracted bedrest or surgical procedure. Patient denies any history of lower extremity pain or swelling or history of clotting disorder. Patient denies any cardiac history. Patient does admit to hypertension and substance use. Patient also admits to tobacco use. Patient denies any head pain neck pain upper or lower back pain chest pain rib pain chest wall pain abdominal pain or shortness of breath. Patient denies nausea or vomiting. Patient denies diaphoresis. Patient states that periodically he has some tingling in his right upper extremity and over the past 6-8 months he has noted some numbness in his left upper extremity but states these are not new symptoms. Patient denies any recent febrile illness. [facility] Past Medical History Narrative Medical Depression, valvular heart disease, hypertension; alcohol use tobacco use substance use/cocaine; nursing notes reviewed Depression: Yes Cardiovascular Problems: No Diminished Hearing: No Tetanus Vaccination: Unknown Influenza Vaccination: No Past Surgical History Cholecystectomy: Yes Social History Alcohol Use: Yes (4 beers a day) Tobacco Use: Yes (pack) Substance Use: Yes (COCAINE 10/19/16) Allergies-Medications (Allergen,Severity, Reaction): Coded Allergies: No Known Allergies (Unverified Allergy, Unknown, 05/28/17) Reported Meds & Prescriptions Reported Meds & Active Scripts Active Review of Systems Except as stated in HPI: all other systems reviewed are Neg General / Constitutional: No: Fever, Chills Eyes: No: Diploplia, Blurred Vision, Photophobia HENT: No: Headaches, Lightheadedness, Neck Stiffness, Neck Pain Cardiovascular: Positive: Syncope, No: Chest Pain or Discomfort, Palpitations, Diaphoresis Respiratory: No: Cough, Shortness of Breath, Wheezing Gastrointestinal: No: Nausea, Vomiting, Abdominal Pain Genitourinary: No: Decreased Urinary Output, Flank Pain Musculoskeletal: No: Myalgias, Arthralgias, Pain Skin: No Rash Neurologic: Positive: Syncope, No: Weakness, Dizziness, Focal Abnormalities, Coordination Problem, Ataxia, Headache, Change in Mentation, Slurred Speech, Paresthesia, Seizures Psychiatric: Positive: Substance Abuse, No: Anxiety, Depression Hematologic/Lymphatic: No: Easy Bruising Physical Exam Narrative GENERAL: Well-developed well-nourished male in no acute distress or respiratory distress; GCS 15 SKIN: Warm and dry. HEAD: Atraumatic. Normocephalic. No scalp soft tissue swelling tenderness abrasion laceration or bony abnormality. EYES: Pupils equal and round. Extraocular muscles intact. No scleral icterus. No injection or drainage. ENT: No nasal bleeding or discharge. Mucous membranes pink and moist. Airway is patent. No dental malocclusion. No tongue trauma. NECK: Trachea midline. No JVD. No midline tenderness to direct palpation along the cervical spine no bony step-off. CARDIOVASCULAR: Regular rate and rhythm. Chest wall: Nontender to direct palpation no ecchymosis or abrasion. RESPIRATORY: No accessory muscle use. Clear to auscultation. Breath sounds equal bilaterally. GASTROINTESTINAL: Abdomen soft, non-tender, nondistended. Hepatic and splenic margins not palpable. MUSCULOSKELETAL: Extremities without clubbing, cyanosis, or edema. No obvious deformities. NEUROLOGICAL: Awake and alert. GCS 15. No obvious cranial nerve deficits. Motor grossly within normal limits. Five out of 5 muscle strength in the arms and legs. Normal speech. PSYCHIATRIC: Appropriate mood and affect; insight and judgment normal. Data Data Last Documented VS Vital Signs Date Time Temp Pulse Resp B/P (MAP) Pulse Ox O2 Delivery O2 Flow Rate FiO2 05/28/17 03:08 99 Room Air 05/28/17 02:21 98.0 75 16 140/96 (111) Orders Orders Electrocardiogram (05/28/17 02:45) Complete Blood Count With Diff (05/28/17 02:45) Comprehensive Metabolic Panel (05/28/17 02:45) Magnesium (Mg) (05/28/17 02:45) Ckmb (Isoenzyme) Profile (05/28/17 02:45) Act Partial Throm Time (Ptt) (05/28/17 02:45) Urinalysis - C+S If Indicated (05/28/17 02:45) Chest, Single Ap (05/28/17 02:45) Ct Brain W/O Iv Contrast(Rout) (05/28/17 02:45) Ct Cerv Spine W/O Contrast (05/28/17 02:45) Ecg Monitoring (05/28/17 02:45) Iv Access Insert/Monitor (05/28/17 02:45) Oximetry (05/28/17 02:45) Ondansetron Inj (Zofran Inj) (05/28/17 02:45) Sodium Chloride 0.9% Flush (Ns Flush) (05/28/17 02:45) Sodium Chlor 0.9% 1000 Ml Inj (Ns 1000 M (05/28/17 02:45) Drug Screen, Random Urine (05/28/17 02:45) Alcohol (Ethanol) (05/28/17 02:45) Prothrombin Time / Inr (Pt) (05/28/17 03:51) CKMB (05/28/17 02:50) CKMB% (05/28/17 02:50) Troponin I (05/28/17 02:50) Admit Order (Ed Use Only) (05/28/17 ) Machine Or Machinery Mechanic / Telemetry SAMANTHA.Q8H (05/28/17 04:48) Activity Oob With Assistance (05/28/17 04:48) Notify Dr: Other (05/28/17 04:48) Labs Laboratory Tests Test 05/28/17 02:50 05/28/17 03:30 White Blood Count 7.1 TH/MM3 Red Blood Count 4.37 MIL/MM3 Hemoglobin 13.8 GM/DL Hematocrit 41.1 % Mean Corpuscular Volume 94.2 FL Mean Corpuscular Hemoglobin 31.5 PG Mean Corpuscular Hemoglobin Concent 33.5 % Red Cell Distribution Width 12.7 % Platelet Count 219 TH/MM3 Mean Platelet Volume 8.2 FL Neutrophils (%) (Auto) 59.7 % Lymphocytes (%) (Auto) 32.2 % Monocytes (%) (Auto) 7.2 % Eosinophils (%) (Auto) 0.2 % Basophils (%) (Auto) 0.7 % Neutrophils # (Auto) 4.3 TH/MM3 Lymphocytes # (Auto) 2.3 TH/MM3 Monocytes # (Auto) 0.5 TH/MM3 Eosinophils # (Auto) 0.0 TH/MM3 Basophils # (Auto) 0.0 TH/MM3 CBC Comment DIFF FINAL Differential Comment Prothrombin Time 10.3 SEC Prothromb Time International Ratio 1.0 RATIO Activated Partial Thromboplast Time 26.9 SEC Blood Urea Nitrogen 11 MG/DL Creatinine 1.22 MG/DL Random Glucose 64 MG/DL Total Protein 7.7 GM/DL Albumin 4.2 GM/DL Calcium Level 8.5 MG/DL Magnesium Level 2.2 MG/DL Alkaline Phosphatase 100 U/L Aspartate Amino Transf (AST/SGOT) 59 U/L Alanine Aminotransferase (ALT/SGPT) 39 U/L Total Bilirubin 0.7 MG/DL Sodium Level 137 MEQ/L Potassium Level 3.7 MEQ/L Chloride Level 103 MEQ/L Carbon Dioxide Level 24.3 MEQ/L Anion Gap 10 MEQ/L Estimat Glomerular Filtration Rate 75 ML/MIN Total Creatine Kinase 1893 U/L Creatine Kinase MB 7.9 NG/ML Creatine Kinase MB % 0.4 % Troponin I LESS THAN 0.02 NG/ML Ethyl Alcohol Level 68 MG/DL Urine Color YELLOW Urine Turbidity CLEAR Urine pH 5.0 Urine Specific [place] 1.018 Urine Protein 30 mg/dL Urine Glucose (UA) NEG mg/dL Urine Ketones 10 mg/dL Urine Occult Blood SMALL Urine Nitrite NEG Urine Bilirubin NEG Urine Urobilinogen LESS THAN 2.0 MG/DL Urine Leukocyte Esterase NEG Urine RBC 1 /hpf Urine WBC 1 /hpf Urine Mucus FEW /lpf Microscopic Urinalysis Comment CULT NOT INDICATED Urine Opiates Screen NEG Urine Barbiturates Screen NEG Urine Amphetamines Screen NEG Urine Benzodiazepines Screen NEG Urine Cocaine Screen POS Urine Cannabinoids Screen NEG MDM Medical Decision Making Medical Screen Exam Complete: Yes Emergency Medical Condition: Yes Medical Record Reviewed: Yes Interpretation(s) EKG normal sinus rhythm rate [address] elevation LVH is noted by voltage criteria Chest x-ray: No acute process per reading radiologist Dr. Cornejo CT brain noncontrast: No acute process per reading radiologist Dr. Cornejo CT cervical spine noncontrast: Degenerative changes no acute process or fracture listhesis per reading radiologist Dr. Cornejo CBC & BMP Diagram 05/28/17 02:50 Total Protein 7.7, Albumin 4.2, Calcium Level 8.5, Magnesium Level 2.2, Alkaline Phosphatase 100, Aspartate Amino Transf (AST/SGOT) 59 H, Alanine Aminotransferase (ALT/SGPT) 39, Total Bilirubin 0.7 Vital Signs Date Time Temp Pulse Resp B/P (MAP) Pulse Ox O2 Delivery O2 Flow Rate FiO2 05/28/17 03:08 99 Room Air 05/28/17 02:30 99 Room Air 05/28/17 02:21 98.0 75 16 140/96 (111) 98 CK: 1893, mb 7.9mb% 0.4% troponin I: 0.02, not elevated Alcohol level: 68, elevated Urine drug screen positive for cocaine Differential Diagnosis Syncope, seizure, arrhythmia, ACS, polysubstance ingestion, electrolyte disturbance, alcohol intoxication, trip and fall Narrative Course Patient placed on cardiac cath lab manager with continuous pulse oximetry IV access obtained specimens collected and sent for resulting EKG performed shows sinus rhythm without acute ST elevation LVH is noted by voltage criteria Patient resting quietly waiting on lab results Patient informed of lab results and abnormal findings and need for admission Medicine service called for admission for syncope, elevated CK/early rhabdomyolysis and cocaine abuse Physician Communication Physician Communication call placed to [facility] Diagnosis Primary Impression: Syncope Qualified Codes: R55 - Syncope and collapse Additional Impressions: Elevated CK Cocaine abuse Admitting Information Admitting Physician Requests: Observation Marysol Holman MD May 28, 2017 02:44
[2017-05-28] MEDS ORDERED: SODIUM CHLOR 0.9% 1000 ML INJ 1,000 ML IV ONE (02:45)
[2017-05-28] MEDS ORDERED: SODIUM CHLORIDE 0.9% FLUSH 10 ML FLUSH IVF PRN (02:45)
[2017-05-28] MEDS ORDERED: ONDANSETRON HCL 4 MG/2 ML VIAL IVP ONE (02:45)
--- NOTE | 2017-05-28 03:06 | RADRPT ---
EXAM DATE/TIME: 05/28/2017 02:50 [facility] COMPARISON: CHEST SINGLE AP, October 21, 2016, 23:48. INDICATIONS : Syncopal episode, third one lifetime. MEDICAL HISTORY : None. SURGICAL HISTORY : Cholecystectomy. ENCOUNTER: Initial ACUITY: 1 day PAIN SCORE: 0/10 LOCATION: Bilateral chest FINDINGS: A single view of the chest demonstrates the lungs to be symmetrically aerated without evidence of mas s, infiltrate or effusion. The cardiomediastinal contours are unremarkable. Osseous structures are intact. CONCLUSION: No acute disease. Willie Cornejo MD on May 28, 2017 at 3:04 Board Certified Radiologist. This report was verified electronically.
--- NOTE | 2017-05-28 03:21 | RADRPT ---
EXAM DATE/TIME: 05/28/2017 03:03 [facility] COMPARISON: No previous studies available for comparison. INDICATIONS : Syncopal episode. RADIATION DOSE: 69.15 CTDIvol (mGy) MEDICAL HISTORY : None Substance abuse SURGICAL HISTORY : Cholecystectomy. ENCOUNTER: Initial ACUITY: 1 day PAIN SCALE: 7/10 LOCATION: cranial TECHNIQUE: Multiple contiguous axial images were obtained of the head. Using automated exposure control and adj ustment of the mA and/or kV according to patient size, radiation dose was kept as low as reasonably a chievable to obtain optimal diagnostic quality images. DICOM format image data is available electro nically for review and comparison. FINDINGS: CEREBRUM: The ventricles are normal for age. No evidence of midline shift, mass lesion, hemorrhage or acute in farction. No extra-axial fluid collections are seen. POSTERIOR FOSSA: The cerebellum and brainstem are intact. The 4th ventricle is midline. The cerebellopontine angle i s unremarkable. EXTRACRANIAL: The visualized portion of the orbits is intact. SKULL: The calvaria is intact. No evidence of skull fracture. CONCLUSION: Normal examination. Willie Cornejo MD on May 28, 2017 at 3:19 Board Certified Radiologist. This report was verified electronically.
--- NOTE | 2017-05-28 03:24 | RADRPT ---
EXAM DATE/TIME: 05/28/2017 03:03 [place] COMPARISON: No previous studies available for comparison. INDICATIONS : Syncopal episode. RADIATION DOSE: 31.06 CTDIvol (mGy) MEDICAL HISTORY : None Substance abuse SURGICAL HISTORY : Cholecystectomy. ENCOUNTER: Initial ACUITY: 1 day PAIN SCALE: 7/10 LOCATION: neck TECHNIQUE: Volumetric scanning of the cervical spine was performed. Multiplanar reconstructions in the sagittal, coronal and oblique axial planes were performed. Using automated exposure control and adjustment o f the mA and/or kV according to patient size, radiation dose was kept as low as reasonably achievable to obtain optimal diagnostic quality images. DICOM format image data is available electronically f or review and comparison. FINDINGS: Straining of the cervical lordosis. No prevertebral soft tissue swelling or compression performed. Th ere is anterior osteophytosis noted at C4-C6. Mild disc space narrowing at C5-6 identified. Cervicoth oracic junction is approximated, and the odontoid process is intact. At C5-6 diffuse disc osteophyte complex is noted eccentric to the right with mild canal narrowing and mild right foraminal stenosis. CONCLUSION: Degenerative changes are noted without fracture or listhesis. Willie Cornejo MD on May 28, 2017 at 3:20 Board Certified Radiologist. This report was verified electronically.
[2017-05-28 03:40] LABS: AUTOMATED NEUTROPHIL # 4.3 TH/MM3 (1.8-7.7); BASOPHIL % 0.7 % (0.0-2.0); EOSINOPHIL % 0.2 % (0.0-4.0); HEMATOCRIT 41.1 % (39.0-51.0); HEMOGLOBIN 13.8 GM/DL (13.0-17.0); LYMPH % 32.2 % (9.0-44.0); LYMPHOCYTE # 2.3 TH/MM3 (1.0-4.8); MEAN CELL VOLUME 94.2 FL (80.0-100.0); MEAN CORPUSCULAR HEMOGLOBIN 31.5 PG (27.0-34.0); MEAN CORPUSCULAR HGB CONC 33.5 % (32.0-36.0); MEAN PLATELET VOLUME 8.2 FL (7.0-11.0); MONO % 7.2 % (0.0-8.0); MONOCYTE # 0.5 TH/MM3 (0-0.9); NEUT % 59.7 % (16.0-70.0); PLATELET COUNT 219 TH/MM3 (150-450); RED BLOOD COUNT 4.37 MIL/MM3 (4.50-5.90); RED CELL DISTRIBUTION WIDTH 12.7 % (11.6-17.2); WHITE BLOOD COUNT 7.1 TH/MM3 (4.0-11.0)
[2017-05-28 03:58] LABS: ALBUMIN 4.2 GM/DL (3.4-5.0); ALT (GPT) 39 U/L (12-78); AST (GOT) 59 U/L (15-37); BICARBONATE 24.3 MEQ/L (21.0-32.0); BLOOD UREA NITROGEN 11 MG/DL (7-18); CALCIUM 8.5 MG/DL (8.5-10.1); CHLORIDE 103 MEQ/L (98-107); CREATININE 1.22 MG/DL (0.60-1.30); GLOMERULAR FILTRATION RATE 75 ML/MIN (>89); GLUCOSE,RANDOM 64 MG/DL (74-106); MAGNESIUM 2.2 MG/DL (1.5-2.5); SODIUM (NA) 137 MEQ/L (136-145)
[2017-05-28 04:11] LABS: ALKALINE PHOSPHATASE 100 U/L (45-117); TOTAL BILIRUBIN ADULT 0.7 MG/DL (0.2-1.0); TOTAL PROTEIN 7.7 GM/DL (6.4-8.2)
[2017-05-28 04:18] LABS: BILIRUBIN, URINE NEG (NEG); BLOOD, URINE SMALL (NEG); GLUCOSE,URINE NEG (NEG); KETONE, URINE 10 mg/dL (NEG); MUCUS URINE FEW /lpf (OCC); NITRITE,URINE NEG (NEG); URINE COLOR YELLOW (YELLW/STRAW); URINE LEUKOCYTE ESTERASE NEG (NEG)
[2017-05-28 04:19] LABS: PROTHROMBIN TIME - PATIENT 10.3 SEC (9.8-11.6)
[2017-05-28 04:42] LABS: TROPONIN I LESS THAN 0.02 NG/ML (0.02-0.05)
[2017-05-28] MEDS: ENOXAPARIN SODIUM 40 MG/0.4 ML SYRINGE SQ SCH ×2 (05:00→05:51)
[2017-05-28] MEDS ORDERED: NALOXONE HCL 0.4 MG/ML AMP IV PUSH PRN (05:00)
[2017-05-28] MEDS ORDERED: SODIUM CHLORIDE 0.9% FLUSH 10 ML FLUSH IV FLUSH PRN (05:00)
[2017-05-28] MEDS ORDERED: ONDANSETRON HCL 4 MG/2 ML VIAL IVP PRN (05:00)
--- NOTE | 2017-05-28 05:03 | HHI.HP ---
[facility] No Primary Care Physician Admission Diagnosis syncope; elevated CK/rhabdomyolysis; cocaine abuse Diagnoses: Travel History International Travel<30 Days: No Contact w/Intl Traveler <30 Da: No Traveled to Known Affected Are: No History of Present Illness 51-year-old male with a past medical history of bipolar disorder, generalized anxiety disorder and cocaine abuse presents to the emergency department after a syncopal event. The patient states he was walking down the street when he suddenly passed out. He became lightheaded with associated nausea and headache and "just fell over." Denies any associated chest pain or shortness of breath. Endorses intermittent chills over the past few days. He denies any head trauma. Review of Systems Except as stated in HPI: all other systems reviewed are Neg Past Family Social History Past Medical History Bipolar disorder Generalized anxiety disorder Cocaine abuse Past Surgical History Cholecystectomy Reported Medications Reported Meds & Active Scripts Active Allergies: Coded Allergies: No Known Allergies (Unverified Allergy, Unknown, 05/28/17) Family History Denies family history of DM/CAD Social History Smokes approximately one pack per day. Occasional alcohol. Denies marijuana. Admits to smoking and snorting cocaine. Physical Exam Vital Signs Vital Signs Date Time Temp Pulse Resp B/P (MAP) Pulse Ox O2 Delivery O2 Flow Rate FiO2 05/28/17 03:08 99 Room Air 05/28/17 02:30 99 Room Air 05/28/17 02:21 98.0 75 16 140/96 (111) 98 Physical Exam GENERAL: Shara male lying in bed SKIN: No rashes, ecchymoses or lesions. Cool and dry. HEAD: Atraumatic. Normocephalic. No temporal or scalp tenderness. EYES: Pupils equal round and reactive. Extraocular motions intact. No scleral icterus. No injection or drainage. ENT: Nose without bleeding, purulent drainage or septal hematoma. Throat without erythema, tonsillar hypertrophy or exudate. Uvula midline. Airway patent. NECK: Trachea midline. No JVD or lymphadenopathy. Supple, nontender, no meningeal signs. CARDIOVASCULAR: Regular rate and rhythm without murmurs, gallops, or rubs. RESPIRATORY: Clear to auscultation. Breath sounds equal bilaterally. No wheezes , rales, or rhonchi. GASTROINTESTINAL: Abdomen soft, non-tender, nondistended. No hepato-splenomegaly , or palpable masses. No guarding. MUSCULOSKELETAL: Extremities without clubbing, cyanosis, or edema. No joint tenderness, effusion, or edema noted. No calf tenderness. NEUROLOGICAL: Awake and alert. Cranial nerves II through XII intact. Motor and sensory grossly within normal limits. Normal speech. Laboratory Laboratory Tests Test 05/28/17 02:50 05/28/17 03:30 White Blood Count 7.1 Red Blood Count 4.37 Hemoglobin 13.8 Hematocrit 41.1 Mean Corpuscular Volume 94.2 Mean Corpuscular Hemoglobin 31.5 Mean Corpuscular Hemoglobin Concent 33.5 Red Cell Distribution Width 12.7 Platelet Count 219 Mean Platelet Volume 8.2 Neutrophils (%) (Auto) 59.7 Lymphocytes (%) (Auto) 32.2 Monocytes (%) (Auto) 7.2 Eosinophils (%) (Auto) 0.2 Basophils (%) (Auto) 0.7 Neutrophils # (Auto) 4.3 Lymphocytes # (Auto) 2.3 Monocytes # (Auto) 0.5 Eosinophils # (Auto) 0.0 Basophils # (Auto) 0.0 CBC Comment DIFF FINAL Differential Comment Prothrombin Time 10.3 Prothromb Time International Ratio 1.0 Activated Partial Thromboplast Time 26.9 Blood Urea Nitrogen 11 Creatinine 1.22 Random Glucose 64 Total Protein 7.7 Albumin 4.2 Calcium Level 8.5 Magnesium Level 2.2 Alkaline Phosphatase 100 Aspartate Amino Transf (AST/SGOT) 59 Alanine Aminotransferase (ALT/SGPT) 39 Total Bilirubin 0.7 Sodium Level 137 Potassium Level 3.7 Chloride Level 103 Carbon Dioxide Level 24.3 Anion Gap 10 Estimat Glomerular Filtration Rate 75 Total Creatine Kinase 1893 Creatine Kinase MB 7.9 Creatine Kinase MB % 0.4 Troponin I LESS THAN 0.02 Ethyl Alcohol Level 68 Urine Color YELLOW Urine Turbidity CLEAR Urine pH 5.0 Urine Specific [place] 1.018 Urine Protein 30 Urine Glucose (UA) NEG Urine Ketones 10 Urine Occult Blood SMALL Urine Nitrite NEG Urine Bilirubin NEG Urine Urobilinogen LESS THAN 2.0 Urine Leukocyte Esterase NEG Urine RBC 1 Urine WBC 1 Urine Mucus FEW Microscopic Urinalysis Comment CULT NOT INDICATED Urine Opiates Screen NEG Urine Barbiturates Screen NEG Urine Amphetamines Screen NEG Urine Benzodiazepines Screen NEG Urine Cocaine Screen POS Urine Cannabinoids Screen NEG Result Diagram: 05/28/1724905/28/17249 Caprini VTE Risk Assessment Caprini VTE Risk Assessment: No/Low Risk (score <= 1) Caprini Risk Assessment Model Point Value = 1 Point Value = 2 Point Value = 3 Point Value = 5 Age 41-60 Minor surgery BMI > 25 kg/m2 Swollen legs Varicose veins or History of unexplained or recurrent spontaneous Oral contraceptives or hormone replacement Sepsis (< 1 month) Serious lung disease, including pneumonia (< 1 month) Abnormal pulmonary function Acute myocardial infarction Congestive heart failure (< 1 month) History of inflammatory bowel disease Medical patient at bed rest Age 61-74 Arthroscopic surgery Major open surgery (> 45 min) Laparoscopic surgery (> 45 min) Malignancy Confined to bed (> 72 hours) Immobilizing plaster cast Central venous access Age >= 75 History of VTE Family history of VTE Factor V Leiden Prothrombin [id number] Lupus anticoagulant Anticardiolipin antibodies Elevated serum homocysteine Heparin-induced thrombocytopenia Other congenital or acquired thrombophilia Stroke (< 1 month) Elective arthroplasty Hip, pelvis, or leg fracture Acute spinal cord injury (< 1 month) Prophylaxis Regimen Total Risk Factor Score Risk Level Prophylaxis Regimen 0-1 Low Early ambulation 2 Moderate Order ONE of the following: *Sequential Compression Device (SCD) *Heparin 5000 units SQ BID 3-4 Higher Order ONE of the following medications: *Heparin 5000 units SQ TID *Enoxaparin/Lovenox 40 mg SQ daily (WT < 150 kg, CrCl > 30 mL/min) *Enoxaparin/Lovenox 30 mg SQ daily (WT < 150 kg, CrCl > 10-29 mL/min) *Enoxaparin/Lovenox 30 mg SQ BID (WT < 150 kg, CrCl > 30 mL/min) AND/OR *Sequential Compression Device (SCD) 5 or more Highest Order ONE of the following medications: *Heparin 5000 units SQ TID (Preferred with Epidurals) *Enoxaparin/Lovenox 40 mg SQ daily (WT < 150 kg, CrCl > 30 mL/min) *Enoxaparin/Lovenox 30 mg SQ daily (WT < 150 kg, CrCl > 10-29 mL/min) *Enoxaparin/Lovenox 30 mg SQ BID (WT < 150 kg, CrCl > 30 mL/min) AND *Sequential Compression Device (SCD) Assessment and Plan Assessment and Plan Assessment/plan: 1. Rhabdomyolysis CK 1893, trend Creatinine 1.22 IV fluid hydration Monitor renal function 2. Syncopal event ACS rule out pending Alcohol level 68, positive for cocaine Likely related to substance abuse 3. Depression/generalized anxiety disorder Patient reports depressed mood and requests someone to talk to Psychiatry consulted, appreciate recommendations 4. Substance abuse Cessation counseling provided [facility] protocol FEN Regular diet Electrolytes: monitor and replete prn Ambulation Kandi Saleh MD May 28, 2017 05:03
[2017-05-28] MEDS ORDERED: LORazepam 1 MG TAB PO PRN (05:45)
[2017-05-28] MEDS ORDERED: LORazepam 2 MG TAB PO PRN (05:45)
[2017-05-28] MEDS ORDERED: FLUMAZENIL 0.5 MG/5 ML VIAL IV PUSH PRN (05:45)
[2017-05-28] MEDS ORDERED: LORazepam 2 MG/ML VIAL IV PUSH PRN ×4 (05:45)
[2017-05-28] MEDS: SODIUM CHLORIDE 0.9% FLUSH 10 ML FLUSH IV FLUSH SCH ×2 (09:00→20:17)
[2017-05-28] MEDS: DEXT 5%-NACL 0.9% 1000 ML INJ 1,000 ML IV SCH ×2 (10:00→20:20)
--- NOTE | 2017-05-28 12:06 | EKG ---
Date Performed: 05/28/2017 Time Performed: 02:31:53 PTAGE: 51 years EKG: Sinus rhythm VOLTAGE CRITERIA FOR LVH NONSPECIFIC T-WAVE ABNORMALITY Atrial abnormality Compared to previous trac ing, the T-wave changes have improved. ABNORMAL ECG PREVIOUS TRACING : 10/21/2016 23.06 DOCTOR: Samuel Dos Santos Interpretating Date/Time 05/28/2017 12:05:59
[2017-05-28 13:18] LABS: TROPONIN I LESS THAN 0.02 NG/ML (0.02-0.05)
--- NOTE | 2017-05-28 13:33 | PD.PSY.CON ---
Provisional Diagnosis Admission Date May 28, 2017 at 04:51 Dawson I. Adjustment disorder with depressed mood and anxiety, history of bipolar disorder , cocaine and alcohol use disorder Dawson II. Deferred Dawson III. No significant medical history History of Present Illness Service Psychiatry Consult Requested By ER Primary Care Physician No Primary Care Physician HPI The patient is a 51-year-old man, domiciled with a girlfriend Jesse, unemployed, with a self-reported psychiatric history of bipolar disorder, cocaine and alcohol use disorder, 1 previous psychiatric hospitalization in [place] in 2006, no previous suicidal attempts, history of self cutting behavior, no significant medical history, who presents to the emergency department after a syncopal event. The patient states he was walking down the street when he suddenly passed out. He became lightheaded with associated nausea and headache and "just fell over." Denies any associated chest pain or shortness of breath. Endorses intermittent chills over the past few days. He denies any head trauma. Past Family Social History Coded Allergies: No Known Allergies (Unverified Allergy, Unknown, 05/28/17) Active Scripts Trazodone (Trazodone) 50 Mg Tab, 100 MG PO HS for insomnia, #30 TAB Prov:Tremayne Noonan MD 05/30/17 Clonazepam (Klonopin) 0.5 Mg Tab, 0.5 MG PO Q12HR for anxiety, #14 TAB Prov:Tremayne Noonan MD 05/30/17 Discontinued Scripts Naproxen (Naproxen) 500 Mg Tab, 500 MG PO BID, #60 TAB 0 Refills Prov:Kandi Lizarraga DO 10/22/16 Current Medications Medications (Trade) Dose Ordered Sig/Daniel Route Start Time Stop Time Status Last Admin (NS Flush) 2 ml UNSCH PRN IV FLUSH 05/28/17 05:00 (NS Flush) 2 ml BID IV FLUSH 05/28/17 09:00 (Zofran Inj) 4 mg Q6H PRN IVP 05/28/17 05:00 (Lovenox Inj) 40 mg Q24H SQ 05/28/17 05:00 05/28/17 05:51 (Narcan Inj) 0.4 mg UNSCH PRN IV PUSH 05/28/17 05:00 (Romazicon Inj) 0.2 mg Q1M PRN IV PUSH 05/28/17 05:45 (Ativan) 1 mg Q4H PRN PO 05/28/17 05:45 (Ativan Inj) 1 mg Q4H PRN IV PUSH 05/28/17 05:45 (Ativan) 2 mg Q2H PRN PO 05/28/17 05:45 (Ativan Inj) 2 mg Q2H PRN IV PUSH 05/28/17 05:45 (Ativan Inj) 2 mg Q1H PRN IV PUSH 05/28/17 05:45 (Ativan Inj) 2 mg Q15M PRN IV PUSH 05/28/17 05:45 Dextrose/Sodium Chloride 1,000 ml @ 100 mls/hr Q10H IV 05/28/17 10:00 Physical Exam Vital Signs Vital Signs Date Time Temp Pulse Resp B/P (MAP) Pulse Ox O2 Delivery O2 Flow Rate FiO2 05/28/17 08:00 98.3 76 20 148/74 (98) 95 05/28/17 06:41 Room Air Lab Results Test 05/28/17 02:50 05/28/17 03:30 05/28/17 11:59 White Blood Count 7.1 TH/MM3 Red Blood Count 4.37 MIL/MM3 Hemoglobin 13.8 GM/DL Hematocrit 41.1 % Mean Corpuscular Volume 94.2 FL Mean Corpuscular Hemoglobin 31.5 PG Mean Corpuscular Hemoglobin Concent 33.5 % Red Cell Distribution Width 12.7 % Platelet Count 219 TH/MM3 Mean Platelet Volume 8.2 FL Neutrophils (%) (Auto) 59.7 % Lymphocytes (%) (Auto) 32.2 % Monocytes (%) (Auto) 7.2 % Eosinophils (%) (Auto) 0.2 % Basophils (%) (Auto) 0.7 % Neutrophils # (Auto) 4.3 TH/MM3 Lymphocytes # (Auto) 2.3 TH/MM3 Monocytes # (Auto) 0.5 TH/MM3 Eosinophils # (Auto) 0.0 TH/MM3 Basophils # (Auto) 0.0 TH/MM3 CBC Comment DIFF FINAL Differential Comment Prothrombin Time 10.3 SEC Prothromb Time International Ratio 1.0 RATIO Activated Partial Thromboplast Time 26.9 SEC Blood Urea Nitrogen 11 MG/DL Creatinine 1.22 MG/DL Random Glucose 64 MG/DL Total Protein 7.7 GM/DL Albumin 4.2 GM/DL Calcium Level 8.5 MG/DL Magnesium Level 2.2 MG/DL Alkaline Phosphatase 100 U/L Aspartate Amino Transf (AST/SGOT) 59 U/L Alanine Aminotransferase (ALT/SGPT) 39 U/L Total Bilirubin 0.7 MG/DL Sodium Level 137 MEQ/L Potassium Level 3.7 MEQ/L Chloride Level 103 MEQ/L Carbon Dioxide Level 24.3 MEQ/L Anion Gap 10 MEQ/L Estimat Glomerular Filtration Rate 75 ML/MIN Total Creatine Kinase 1893 U/L 1318 U/L Creatine Kinase MB 7.9 NG/ML Creatine Kinase MB % 0.4 % Troponin I LESS THAN 0.02 NG/ML LESS THAN 0.02 NG/ML Ethyl Alcohol Level 68 MG/DL Urine Color YELLOW Urine Turbidity CLEAR Urine pH 5.0 Urine Specific [place] 1.018 Urine Protein 30 mg/dL Urine Glucose (UA) NEG mg/dL Urine Ketones 10 mg/dL Urine Occult Blood SMALL Urine Nitrite NEG Urine Bilirubin NEG Urine Urobilinogen LESS THAN 2.0 MG/DL Urine Leukocyte Esterase NEG Urine RBC 1 /hpf Urine WBC 1 /hpf Urine Mucus FEW /lpf Microscopic Urinalysis Comment CULT NOT INDICATED Urine Opiates Screen NEG Urine Barbiturates Screen NEG Urine Amphetamines Screen NEG Urine Benzodiazepines Screen NEG Urine Cocaine Screen POS Urine Cannabinoids Screen NEG Mental Status Examination Appearance: Appropriate Consciousness: Alert Orientation: x4 Motor Activity: Normal gait Speech: Unremarkable Language: Adequate Fund of Knowledge: Adequate Attention and Concentration: Adequate Memory: Unremarkable Mood: Appropriate Affect: Appropriate Thought Process & Associations: Intact Thought Content: Appropriate Hallucination Type: None Delusion Type: None Suicidal Ideation: No Suicidal Plan: No Suicidal Intention: No Homicidal Ideation: No Homicidal Plan: No Homicidal Intention: No Insight: Adequate Judgment: Adequate Assessment & Plan Problem List: (1) Adjustment disorder with mixed anxiety and depressed mood ICD Codes: F43.23 - Adjustment disorder with mixed anxiety and depressed mood Assessment & Plan: On psychiatric evaluation today the patient reports symptoms of mild depression and anxiety in the context family/economical/ medical stressors. Patient reports daily use of cocaine and alcohol. He denies suicidal and homicidal ideation, he denies visual and auditory hallucinations. He is fully oriented 3, no attention deficit, no fluctuation of consciousness. He does not meet criteria for involuntary psychiatric admission at this moment.. continue CIWA. We will start trazodone 100 mg at bedtime for depression and insomnia, clonazepam 0.5 mg for anxiety. Brief supportive psychotherapy and psychoeducation provided. I will follow-up. Assessment & Plan Estimated LOS: Ruddy Cross MD May 28, 2017 13:33
--- NOTE | 2017-05-28 14:24 | HHI.PR ---
Addendum to Inpatient Note Addendum Reason: Additional Documentation Additional Information The patient was resting comfortably in bed. He did not recall any symptoms prior to the syncopal episode. He denies anyone reporting seizure activity. He does report a lot of stressors in his life. He has been using cocaine and alcohol regularly. He has passed out for in the past and he was under a lot of stressors at that time as well. Appreciate psychiatry consultation. Continue trazodone and Klonopin as recommended. Continue IV fluids and monitor CPK. Troponins negative 2. Stephen Osorio DO May 28, 2017 14:24
[2017-05-28 19:10] LABS: TROPONIN I LESS THAN 0.02 NG/ML (0.02-0.05)
[2017-05-28] MEDS: traZODone HCL 100 MG TAB PO SCH (20:16)
[2017-05-28] MEDS: clonazePAM 0.5 MG TAB PO SCH (20:16)
[2017-05-29] VITALS (11 sets, daily range): BP systolic 106–156; BP diastolic 61–87; PULSE 57–72; RESP 18–20; TEMP 98–98.8; O2SAT 94–99
[2017-05-29] MEDS: DEXT 5%-NACL 0.9% 1000 ML INJ 1,000 ML IV SCH ×2 (04:51→16:09)
[2017-05-29] MEDS: SODIUM CHLORIDE 0.9% FLUSH 10 ML FLUSH IV FLUSH SCH ×2 (08:23→21:00)
[2017-05-29] MEDS: clonazePAM 0.5 MG TAB PO SCH ×2 (08:23→22:05)
[2017-05-29 08:40] LABS: AUTOMATED NEUTROPHIL # 2.2 TH/MM3 (1.8-7.7); BASOPHIL % 0.3 % (0.0-2.0); EOSINOPHIL # 0.1 TH/MM3 (0-0.4); EOSINOPHIL % 1.7 % (0.0-4.0); HEMATOCRIT 36.6 % (39.0-51.0); HEMOGLOBIN 12.3 GM/DL (13.0-17.0); LYMPH % 46.2 % (9.0-44.0); LYMPHOCYTE # 2.3 TH/MM3 (1.0-4.8); MEAN CELL VOLUME 93.7 FL (80.0-100.0); MEAN CORPUSCULAR HEMOGLOBIN 31.5 PG (27.0-34.0); MEAN CORPUSCULAR HGB CONC 33.6 % (32.0-36.0); MONO % 7.4 % (0.0-8.0); MONOCYTE # 0.4 TH/MM3 (0-0.9); NEUT % 44.4 % (16.0-70.0); PLATELET COUNT 195 TH/MM3 (150-450); RED CELL DISTRIBUTION WIDTH 12.6 % (11.6-17.2); WHITE BLOOD COUNT 4.9 TH/MM3 (4.0-11.0)
[2017-05-29 09:06] LABS: BICARBONATE 27.5 MEQ/L (21.0-32.0); CALCIUM 8.6 MG/DL (8.5-10.1); CREATININE 1.04 MG/DL (0.60-1.30)
--- NOTE | 2017-05-29 10:34 | HHI.PR ---
Subjective Remarks The patient said that he feels the same. He said he talked with the psychiatrist yesterday. He said he does not feel like doing much today. He has been ambulating to the bathroom. He says he would like to go back to work on Monday. Objective Vitals Vital Signs Date Time Temp Pulse Resp B/P (MAP) Pulse Ox O2 Delivery O2 Flow Rate FiO2 05/29/17 09:27 Room Air 05/29/17 08:00 64 05/29/17 08:00 98.0 57 20 137/67 (90) 99 05/29/17 04:00 72 05/29/17 04:00 98.0 61 18 122/61 (81) 97 05/29/17 00:42 Room Air 05/29/17 00:00 60 05/29/17 00:00 98.2 61 18 129/65 (86) 96 05/28/17 20:15 98.5 66 18 140/89 (106) 98 05/28/17 20:00 64 05/28/17 20:00 Room Air 05/28/17 17:57 68 05/28/17 16:00 98.9 83 18 121/70 (87) 94 05/28/17 12:00 98.4 68 20 143/79 (100) 97 05/28/17 12:00 71 I/O 05/28/17 05/28/17 05/28/17 05/29/17 05/29/17 05/29/17 07:00 15:00 23:00 07:00 15:00 23:00 Intake Total 700 ml 480 ml 999 ml Balance 700 ml 480 ml 999 ml Intake Oral 480 ml IV Total 700 ml 999 ml # Voids 1 1 Result Diagram: 05/29/17 0755 05/29/17 0755 Imaging Last Impressions Head CT 05/28/17244 Signed Impressions: Service Date/Time: Sunday, May 28, 2017 03:03 - CONCLUSION: Normal examination. Willie Cornejo MD Chest X-Ray 05/28/17244 Signed Impressions: Service Date/Time: Sunday, May 28, 2017 02:50 - CONCLUSION: No acute disease. Willie Cornejo MD Cervical Spine CT 05/28/17244 Signed Impressions: Service Date/Time: Sunday, May 28, 2017 03:03 - CONCLUSION: Degenerative changes are noted without fracture or listhesis. Willie Cornejo MD Objective Remarks GENERAL: Resting comfortably in bed. SKIN: No rashes, ecchymoses or lesions. Cool and dry. HEAD: Atraumatic. Normocephalic. No temporal or scalp tenderness. EYES: Pupils equal round and reactive. Extraocular motions intact. No scleral icterus. No injection or drainage. ENT: Nose without bleeding, purulent drainage or septal hematoma. Throat without erythema, tonsillar hypertrophy or exudate. Uvula midline. Airway patent. NECK: Trachea midline. No JVD or lymphadenopathy. Supple, nontender, no meningeal signs. CARDIOVASCULAR: Regular rate and rhythm without murmurs, gallops, or rubs. RESPIRATORY: Clear to auscultation. Breath sounds equal bilaterally. No wheezes , rales, or rhonchi. GASTROINTESTINAL: Abdomen soft, non-tender, nondistended. No hepato-splenomegaly , or palpable masses. No guarding. MUSCULOSKELETAL: Extremities without clubbing, cyanosis, or edema. No joint tenderness, effusion, or edema noted. No calf tenderness. NEUROLOGICAL: Awake and alert. Cranial nerves II through XII intact. Motor and sensory grossly within normal limits. Normal speech. PSYCH: Flattened affect. Medications and IVs Current Medications Medications (Trade) Dose Ordered Sig/Daniel Route Start Time Stop Time Status Last Admin (NS Flush) 2 ml UNSCH PRN IV FLUSH 05/28/17 05:00 (NS Flush) 2 ml BID IV FLUSH 05/28/17 09:00 (Zofran Inj) 4 mg Q6H PRN IVP 05/28/17 05:00 (Lovenox Inj) 40 mg Q24H SQ 05/28/17 05:00 05/28/17 05:51 (Narcan Inj) 0.4 mg UNSCH PRN IV PUSH 05/28/17 05:00 (Romazicon Inj) 0.2 mg Q1M PRN IV PUSH 05/28/17 05:45 (Ativan) 1 mg Q4H PRN PO 05/28/17 05:45 (Ativan Inj) 1 mg Q4H PRN IV PUSH 05/28/17 05:45 (Ativan) 2 mg Q2H PRN PO 05/28/17 05:45 (Ativan Inj) 2 mg Q2H PRN IV PUSH 05/28/17 05:45 (Ativan Inj) 2 mg Q1H PRN IV PUSH 05/28/17 05:45 (Ativan Inj) 2 mg Q15M PRN IV PUSH 05/28/17 05:45 Dextrose/Sodium Chloride 1,000 ml @ 100 mls/hr Q10H IV 05/28/17 10:00 05/29/17 04:51 (Desyrel) 100 mg HS PO 05/28/17 21:00 05/28/17 20:16 (KlonoPIN) 0.5 mg Q12HR PO 05/28/17 21:00 05/29/17 08:23 A/P Assessment and Plan Rhabdomyolysis CK 1893 on admission, trending down. - IV fluid hydration. - Monitor CPK. Syncopal event ACS ruled out with EKGs and trops. Likely s/t alcohol abuse, cocaine use and stress. - cessation instruction. - [facility] protocol. - Telemetry. Depression/generalized anxiety disorder Patient reports depressed mood and requests someone to talk to. Psychiatry consult appreciated. - continue Klonopin and trazodone per psych. - Outpatient follow-up. PPx: SCDs Discharge Planning DC in AM if CPK continues to improve Stephen Osorio DO May 29, 2017 10:34
--- NOTE | 2017-05-29 20:48 | HHI.PR ---
Subjective Remarks NOT SEEN Objective Vitals Vital Signs Date Time Temp Pulse Resp B/P (MAP) Pulse Ox O2 Delivery O2 Flow Rate FiO2 05/29/17 16:04 63 05/29/17 16:00 98.4 65 20 144/81 (102) 97 05/29/17 12:00 98.2 58 20 128/87 (101) 98 05/29/17 11:59 61 05/29/17 09:27 Room Air 05/29/17 08:00 64 05/29/17 08:00 98.0 57 20 137/67 (90) 99 05/29/17 04:00 72 05/29/17 04:00 98.0 61 18 122/61 (81) 97 05/29/17 00:42 Room Air 05/29/17 00:00 60 05/29/17 00:00 98.2 61 18 129/65 (86) 96 I/O 05/28/17 05/28/17 05/28/17 05/29/17 05/29/17 05/29/17 07:00 15:00 23:00 07:00 15:00 23:00 Intake Total 700 ml 480 ml 999 ml 1720 ml Balance 700 ml 480 ml 999 ml 1720 ml Intake Oral 480 ml 720 ml IV Total 700 ml 999 ml 1000 ml # Voids 1 1 3 Result Diagram: 05/29/17 0755 05/29/17 075 Imaging Last Impressions Head CT 05/28/17244 Signed Impressions: Service Date/Time: Sunday, May 28, 2017 03:03 - CONCLUSION: Normal examination. Willie Cornejo MD Chest X-Ray 05/28/17244 Signed Impressions: Service Date/Time: Sunday, May 28, 2017 02:50 - CONCLUSION: No acute disease. Willie Cornejo MD Cervical Spine CT 05/28/17244 Signed Impressions: Service Date/Time: Sunday, May 28, 2017 03:03 - CONCLUSION: Degenerative changes are noted without fracture or listhesis. Willie Cornejo MD Objective Remarks GENERAL: Resting comfortably in bed. SKIN: No rashes, ecchymoses or lesions. Cool and dry. HEAD: Atraumatic. Normocephalic. No temporal or scalp tenderness. EYES: Pupils equal round and reactive. Extraocular motions intact. No scleral icterus. No injection or drainage. ENT: Nose without bleeding, purulent drainage or septal hematoma. Throat without erythema, tonsillar hypertrophy or exudate. Uvula midline. Airway patent. NECK: Trachea midline. No JVD or lymphadenopathy. Supple, nontender, no meningeal signs. CARDIOVASCULAR: Regular rate and rhythm without murmurs, gallops, or rubs. RESPIRATORY: Clear to auscultation. Breath sounds equal bilaterally. No wheezes , rales, or rhonchi. GASTROINTESTINAL: Abdomen soft, non-tender, nondistended. No guarding. MUSCULOSKELETAL: Extremities without clubbing, cyanosis, or edema. No joint tenderness, effusion, or edema noted. No calf tenderness. NEUROLOGICAL: Awake and alert. Cranial nerves II through XII intact. Motor and sensory grossly within normal limits. Normal speech. PSYCH: Flattened affect. Procedures NOne A/P Problem List: (1) Elevated CK ICD Code: R74.8 - Abnormal levels of other serum enzymes Status: Acute (2) Syncope ICD Code: R55 - Syncope and collapse Status: Acute Assessment and Plan Rhabdomyolysis CK 1893 on admission, trending down. - IV fluid hydration. - Monitor CPK. Syncopal event ACS ruled out with EKGs and trops. Likely s/t alcohol abuse, cocaine use and stress. - cessation instruction. - [facility] protocol. - Telemetry. Depression/generalized anxiety disorder Patient reports depressed mood and requests someone to talk to. Psychiatry consult appreciated. - continue Klonopin and trazodone per psych. - Outpatient follow-up. PPx: SCDs Discharge Planning DC if CPK continues to improve Problem Qualifiers (1) Syncope: Qualified Codes: R55 - Syncope and collapse Tremayne Noonan MD May 29, 2017 20:48
[2017-05-29] MEDS: traZODone HCL 100 MG TAB PO SCH (22:05)
--- NOTE | 2017-05-29 23:03 | EKG ---
Date Performed: 05/28/2017 Time Performed: 15:08:49 PTAGE: 51 years EKG: Sinus rhythm MINIMAL VOLTAGE CRITERIA FOR LVH, CONSIDER NORMAL VARIANT NONSPECIFIC T-WAVE ABNORMALITY BORDERLINE ECG PREVIOUS TRACING : 05/28/2017 10.57 DOCTOR: Shaw Walton Interpretating Date/Time 05/29/2017 23:01:12
--- NOTE | 2017-05-29 23:09 | EKG ---
Date Performed: 05/28/2017 Time Performed: 10:57:01 PTAGE: 51 years EKG: Sinus rhythm LEFT VENTRICULAR HYPERTROPHY AND ST-T CHANGE ABNORMAL ECG PREVIOUS TRACING : 05/28/2017 02.31 DOCTOR: Shaw Walton Interpretating Date/Time 05/29/2017 23:06:11
[2017-05-30 03:55] VITALS: BP 110/58; PULSE 61; RESP 18; TEMP 98.3; O2SAT 97
[2017-05-30 04:00] VITALS: PULSE 55
[2017-05-30] MEDS: DEXT 5%-NACL 0.9% 1000 ML INJ 1,000 ML IV SCH (05:54)
[2017-05-30] MEDS: ENOXAPARIN SODIUM 40 MG/0.4 ML SYRINGE SQ SCH (05:56)
[2017-05-30 08:00] VITALS: BP 166/98; PULSE 64; PULSE 82; RESP 20; TEMP 98.1; O2SAT 99
[2017-05-30] MEDS: clonazePAM 0.5 MG TAB PO SCH (08:16)
[2017-05-30] MEDS: SODIUM CHLORIDE 0.9% FLUSH 10 ML FLUSH IV FLUSH SCH (08:17)
[2017-05-30] MEDS ORDERED: TRAZ50TA12 PO (09:49)
[2017-05-30] MEDS ORDERED: CLON.5 PO (09:49)
--- NOTE | 2017-05-30 09:50 | HHI.DCPOC ---
Discharge Care Plan Diagnosis: (1) Syncope (2) Cocaine abuse Your Health Problems Are: Difficulty with ADL Exercise Tolerance Goals to Promote Your Health * To prevent worsening of your condition and complications * To maintain your health at the optimal level Directions to Meet Your Goals Take your medications as prescribed Follow your dietary instruction Follow activity as directed Keep your appointments as scheduled Take your immunizations and boosters as scheduled If your symptoms worsen call your PCP, if no PCP go to Urgent Care Center or Emergency Room Smoking is Dangerous to Your Health. Avoid second hand smoke Call the 24-hour hour crisis hotline for domestic abuse at Tremayne Noonan MD May 30, 2017 09:50
--- NOTE | 2017-05-30 09:53 | HHI.DS ---
Discharge Summary Admission Date May 28, 2017 at 04:51 Discharge Date: May 30, 2017 Admitting Diagnosis syncope; elevated CK/rhabdomyolysis; cocaine abuse (1) Elevated CK ICD Code: R74.8 - Abnormal levels of other serum enzymes Diagnosis: Principal Status: Acute (2) Syncope ICD Code: R55 - Syncope and collapse Diagnosis: Principal Status: Acute Procedures None Brief History - From Admission 51-year-old male with a past medical history of bipolar disorder, generalized anxiety disorder and cocaine abuse presents to the emergency department after a syncopal event. The patient states he was walking down the street when he suddenly passed out. He became lightheaded with associated nausea and headache and "just fell over." Denies any associated chest pain or shortness of breath. Endorses intermittent chills over the past few days. He denies any head trauma. CBC/BMP: 05/29/17 0755 05/29/17 0755 Significant Findings Laboratory Tests Test 05/28/17 02:50 05/28/17 03:30 05/28/17 11:59 05/28/17 18:25 Red Blood Count 4.37 MIL/MM3 (4.50-5.90) Random Glucose 64 MG/DL (74-106) Aspartate Amino Transf (AST/SGOT) 59 U/L (15-37) Estimat Glomerular Filtration Rate 75 ML/MIN (>89) Total Creatine Kinase 1893 U/L (39-308) 1318 U/L (39-308) 1080 U/L (39-308) Creatine Kinase MB 7.9 NG/ML (0.5-3.6) 5.6 NG/ML (0.5-3.6) 3.8 NG/ML (0.5-3.6) Troponin I LESS THAN 0.02 NG/ML LESS THAN 0.02 NG/ML LESS THAN 0.02 NG/ML Ethyl Alcohol Level 68 MG/DL (0-5) Urine Protein 30 mg/dL (NEG-TRACE) Urine Ketones 10 mg/dL (NEG) Urine Occult Blood SMALL (NEG) Urine Mucus FEW /lpf (OCC) Urine Cocaine Screen POS (NEG) Test 05/29/17 07:55 05/30/17 05:55 Red Blood Count 3.90 MIL/MM3 (4.50-5.90) Hemoglobin 12.3 GM/DL (13.0-17.0) Hematocrit 36.6 % (39.0-51.0) Lymphocytes (%) (Auto) 46.2 % (9.0-44.0) Chloride Level 108 MEQ/L (98-107) Total Creatine Kinase 643 U/L (39-308) 315 U/L (39-308) Imaging Last Impressions Head CT 05/28/17244 Signed Impressions: Service Date/Time: Sunday, May 28, 2017 03:03 - CONCLUSION: Normal examination. Willie Cornejo MD Chest X-Ray 05/28/17244 Signed Impressions: Service Date/Time: Sunday, May 28, 2017 02:50 - CONCLUSION: No acute disease. Willie Cornejo MD Cervical Spine CT 05/28/17244 Signed Impressions: Service Date/Time: Sunday, May 28, 2017 03:03 - CONCLUSION: Degenerative changes are noted without fracture or listhesis. Willie Cornejo MD PE at Discharge GENERAL: Resting comfortably in bed. SKIN: No rashes, ecchymoses or lesions. Cool and dry. HEAD: Atraumatic. Normocephalic. No temporal or scalp tenderness. EYES: Pupils equal round and reactive. Extraocular motions intact. No scleral icterus. No injection or drainage. ENT: Nose without bleeding, purulent drainage or septal hematoma. Throat without erythema, tonsillar hypertrophy or exudate. Uvula midline. Airway patent. NECK: Trachea midline. No JVD or lymphadenopathy. Supple, nontender, no meningeal signs. CARDIOVASCULAR: Regular rate and rhythm without murmurs, gallops, or rubs. RESPIRATORY: Clear to auscultation. Breath sounds equal bilaterally. No wheezes , rales, or rhonchi. GASTROINTESTINAL: Abdomen soft, non-tender, nondistended. No guarding. MUSCULOSKELETAL: Extremities without clubbing, cyanosis, or edema. No joint tenderness, effusion, or edema noted. No calf tenderness. NEUROLOGICAL: Awake and alert. Cranial nerves II through XII intact. Motor and sensory grossly within normal limits. Normal speech. PSYCH: Flattened affect. Hospital Course Rhabdomyolysis 2/2 to cocaine. Resolving with hydration Syncopal event. ACS ruled out with EKGs and trops. Likely s/t alcohol abuse, cocaine use and stress. - cessation instruction. - CIWA protocol. - Telemetry. Depression/generalized anxiety disorder Patient reports depressed mood and requests someone to talk to. Psychiatry consult appreciated. - continue Klonopin and trazodone per psych. Counseled regarding benzodiazepine use - Outpatient follow-up. PPx: SCDs Pt Condition on Discharge: Stable Discharge Disposition: Discharge Home Discharge Time: > 30 minutes Discharge Instructions DIET: Follow Instructions for: Heart Healthy Diet Activities you can perform: Regular-No Restrictions Activities to Avoid: Driving Follow up Referrals: PCP Follow-up - 1 Week Psychiatry Adult - 1 Week New Medications: Clonazepam (Klonopin) 0.5 Mg Tab 0.5 MG PO Q12HR for anxiety, #14 TAB Trazodone (Trazodone) 50 Mg Tab 100 MG PO HS for insomnia, #30 TAB Tremayne Noonan MD May 30, 2017 09:53
== END 2017-05-30 12:36 | disposition home or self-care (01) | DRG 558 ==
LOC: NEPC 02:17 → NEDA 04:51 → OBSVTOIN 04:51 → N04B 06:08
PROVIDERS: ADMIT Internal Medicine; ATTEND Internal Medicine
DX: M62.82 Rhabdomyolysis (principal); I10 Essential (primary) hypertension; R55 Syncope and collapse; F14.10 Cocaine abuse, uncomplicated; F17.210 Nicotine dependence, cigarettes, uncomplicated; F10.10 Alcohol abuse, uncomplicated; F41.1 Generalized anxiety disorder; F31.9 Bipolar disorder, unspecified; Y90.3 Blood alcohol level of 60-79 mg/100 ml; F43.23 Adjustment disorder with mixed anxiety and depressed mood; G47.00 Insomnia, unspecified
CPT/HCPCS: 70450; 71045; 72125; 80048; 80053; 80307; 81001; 82550; 82552; 83735; 84484; 85025; 85610; 85730; 93005; 96361; 96374; J1650; J2405; J7030; J7042